=== PATIENT | female | born 1950 | race Caucasian/White ===

== ENCOUNTER → 2021-01-11 10:30 | Outpatient (CLI) | payer MEDICARE, MEDICAID, SELFPAY ==
--- NOTE | 2021-01-11 10:35 | RAD_ITS ---
HISTORY: PRURITUS EXAMINATION/TECHNIQUE: XR Chest 2 Views COMPARISON: None FINDINGS: LINES/DEVICES: None. LUNGS: Hyperexpanded lungs. No pulmonary edema. No focal airspace consolidation. Benign punctate granulomatous calcification right lower lung. No pleural effusion. No pneumothorax detected. MEDIASTINUM AND CARDIOVASCULAR STRUCTURES: Heart normal size. Atherosclerotic calcifications along the aorta. BONES AND SOFT TISSUES: Skeletal degenerative changes. Status post bilateral shoulder arthroplasty. Scoliotic curvature of the lumbar spine. RAD/Chest PA and Lateral IMPRESSION: COPD and atherosclerotic disease. at 0511 Reported and signed by: Hugo Acuña MD Electronically Signed: Hugo Acuña MD at 5:10 EST Tel , Service support ,
[2021-01-11 12:11] LABS: Absolute Lymphocyte Count 1.37 X10^3/uL (0.83-4.51); Absolute Neutrophil Count 1.7 X10^3/uL (2.0-7.7); Basophil# 0.02 X10^3/uL; Basophil% 0.6 % (0-1); Eosinophil# 0.08 X10^3/uL; Eosinophils% 2.2 % (0-5); Hemoglobin 13.5 g/dL (12.0-15.0); Lymphocyte # 1.37 X10^3/ul (0.83-4.51); Lymphocyte % 38.5 % (19-41); Mean Corp Hgb Conc 32.9 g/dL (32-36); Mean Corpuscular Hgb 29.7 pg (27.0-32.0); Mean Corpuscular Volume 90.3 fL (81-99); Mean Platelet Vol. 9.6 fl (6.2-12.0); Monocyte# 0.41 X10^3/uL; Monocyte% 11.5 % (0-10); NRBC Flagged by Analyzer 0 % (0-5); Neutrophil # 1.67 X10^3/uL (2.7-7.7); Neutrophil % 46.9 % (47-70); Platelet Count 159 K/mm3 (150-450); RBC Distribution Width CV 12.6 % (11.6-14.6); RBC Distribution Width SD 41.8 fl (35.1-43.9); Red Blood Count 4.54 M/mm3 (4.2-5.4); White Blood Count 3.6 K/mm3 (4.4-11.0)
[2021-01-11 13:03] LABS: AST(SGOT) 15 U/L (15-37); Alanine Aminotransfer ALT/SGPT 21 U/L (13-56); Albumin, Serum 3.7 g/dL (3.2-5.0); Alkaline Phosphatase 125 U/L (45-117); Anion Gap 7 (5-15); BUN 17 mg/dL (7-18); BUN/Creat Ratio 21.7 RATIO (10-20); Bilirubin, Direct 0.21 mg/dL (0.00-0.30); Calcium,Total 9.8 mg/dL (8.5-10.1); Chloride 106 mmol/L (98-107); Creatinine, Serum 0.78 mg/dL (0.55-1.02); EST Glomerular Filtration Rate 77 mL/min (>60); Est Glom Filt Rate - Afr Amer 94 mL/min (>60); Globulin 3.1 g/dL (2.2-4.2); Glucose 98 mg/dL (74-106); Potassium 3.8 mmol/L (3.5-5.1); Protein, Total 6.8 g/dL (6.4-8.2); Sodium Level 140 mmol/L (136-145)
[2021-01-11 13:34] LABS: HIV - WCH Non-Reactive (Nonreactive); Hepatitis C Antibody Non-Reactive (Nonreactive)
[2021-01-15 11:08] LABS: SJOGREN'S Anti-SS-A test < 0.2 AI (0.0-0.9); SJOGREN'S Anti-SS-B test < 0.2 AI (0.0-0.9)
[2021-01-15 11:24] LABS: Anti-Nuclear Antibody Test Negative (.)
[2021-01-15 14:08] LABS: Albumin 3.8 g/dL (2.9-4.4); Alpha-1-Globulins 0.2 g/dL (0.0-0.4); Alpha-2-Globulins 0.8 g/dL (0.4-1.0); Gamma Globulin 0.5 g/dL (0.4-1.8); Immunoglobulin A 64 mg/dL (87-352); Immunoglobulin E 4 IU/mL (6-495); Immunoglobulin G 593 mg/dL (586-1602); Immunoglobulin M 66 mg/dL (26-217); PROEL- TOTAL PROTEIN 6.2 g/dL (6.0-8.5); PROELU- Alpha-1-Globulin,Ur 3.4 % (.); PROELU- Alpha-2-Globulin,Ur 16.8 % (.); PROELU- Beta Globulin, Ur 29.9 % (.); PROELU- Gamma Globulin, Ur 19.9 % (.); Total Protein, Ur 14.7 mg/dL (Not Estab.)
[2021-01-15 19:56] LABS: Deamidated Gliadin IgA 4 units (0-19); Deamidated Gliadin IgG 2 units (0-19); t-Transglutaminase IgA <2 U/mL (0-3)
== END ==
PROVIDERS: Referring Provider Dermatology; Visit Provider Dermatology
DX: L71.8 Other rosacea (principal); L21.8 Other seborrheic dermatitis; L29.8 Other pruritus; L94.2 Calcinosis cutis; L90.5 Scar conditions and fibrosis of skin
CPT/HCPCS: 36415; 71046; 80048; 80076; 82784; 82785; 83516; 84165; 84166; 85025; 86038; 86235; 86334; 86703; 86803

== ENCOUNTER → 2022-12-30 | Outpatient (CLI) | payer MEDICARE, MEDICAID, SELFPAY ==
--- NOTE | 2022-12-30 14:29 | MRI_ITS ---
HISTORY: Neck pain increasing over time. TECHNIQUE: Multiplanar and multisequence MR images of the cervical spine were obtained without contrast. 86 images. COMPARISON: XR 11/20/2022. FINDINGS: VERTEBRAE: Vertebral body heights maintained. Degenerative bone marrow endplate changes at multiple levels. VERTEBRAL ALIGNMENT: Straightening of the cervical lordosis without anterior or posterior subluxation. SPINAL CORD: Motion artifact with slightly increased T2 signal in the cord at C3-4 to C4-5. SOFT TISSUES: No prevertebral fluid collection. INTERVERTEBRAL DISCS: C2-3: No significant posterior disc protrusion, central canal stenosis, or foraminal narrowing. C3-4: Degenerative endplate change with intervertebral disc space narrowing. Posterior disc bulge osteophyte complex with uncovertebral and facet arthropathy resulting in moderate spinal canal stenosis, mild cord impingement, and mild bilateral foraminal narrowing. C4-5: Posterior disc bulge osteophyte complex with uncovertebral and facet arthropathy resulting in mild central canal stenosis and right greater than left foraminal narrowing. C5-6: Posterior disc bulge osteophyte complex with uncovertebral and facet arthropathy resulting in mild central canal stenosis with moderate right and mild left foraminal narrowing C6-7: Posterior disc bulge osteophyte complex with uncovertebral and facet arthropathy resulting in mild central canal stenosis, mild ventral cord abutment, and right foraminal narrowing. C7-T1: Posterior disc bulge osteophyte complex with uncovertebral and facet arthropathy resulting in minimal narrowing of the thecal sac and bilateral foramina. MRI/Spine Cervical (Routine) IMPRESSION: Multilevel degenerative disc disease resulting in moderate spinal canal stenosis with mild cord impingement at C3-4. Mild spinal canal stenosis at multiple levels. Possible mild spinal cord edema versus motion artifact at the C3-4 to C4-5 level. Electronically Signed: Courtney Phillips MD at 15:48 EST ,
== END | disposition home or self-care (01) ==
LOC: MRI 14:13
PROVIDERS: PCP Family Medicine; Referring Provider Orthopaedic Surgery; Visit Provider Orthopaedic Surgery
DX: M48.02 Spinal stenosis, cervical region (principal)
CPT/HCPCS: 72141